=== PATIENT | female | born 1935 | race Caucasian/White ===

== ENCOUNTER 2016-10-04 22:28 | Emergency (ER) | payer MEDICARE, BC ==
[~2016-10-04 22:28] MED LIST: ALLEGRA30 MG PO; CALCIUM CHEWABLE PO; CENTRUM TAB1 TAB PO; HARD NAILS PO; LEVOTHROID75 MCG PO; LEVOTHYROXIN75 MCG PO; MAX25 PO; MULTIVITAMI1 PO; PULMICORT90 MCG INH
== END 2016-10-04 22:36 | disposition home or self-care (01) ==
LOC: ER 22:28
DX: M25.552 Pain in left hip (principal); R10.32 Left lower quadrant pain; Z88.5 Allergy status to narcotic agent; Z79.899 Other long term (current) drug therapy
CPT/HCPCS: 72170; 73502-LT; 85379; 93971; 99284